=== PATIENT | female | born 1975 | race Caucasian/White ===

== ENCOUNTER 2020-11-06 17:33 | Emergency (ER) | payer OTHER ==
[~2020-11-06] VITALS: Ht 160 cm; Wt 89.5 kg
--- NOTE | 2020-11-06 18:10 | RAD ---
EXAM: XR ELBOW COMPLETE_LEFT 3+VIEWS, XR LT WRIST 3VIEWS. HISTORY: Fall from horse. COMPARISON: None. FINDINGS: There is mildly comminuted intra-articular fracture of the distal radius. The main fracture line is in the coronal plane, resulting in a 4 mm articular surface gap. Radiocarpal and intercarpal joint spaces and alignment are maintained. A nondisplaced fracture is suspected at the radial neck. Joint spaces and alignment at the elbow are maintained. There is no joint effusion. IMPRESSION: 1. Comminuted intra-articular fracture of the distal radius resulting in a 4 mm articular surface gap . 2. Suspect a nondisplaced fracture of the radial neck. Electronically signed by: Charli Stahl MD (11/06/2020 6:07 PM) [facility]
--- NOTE | 2020-11-06 18:13 | PHYS DOC ---
Past History Past Medical History: No Pertinent History Past Surgical History: Hysterectomy Alcohol Use: None General Adult EDM: Chief Complaint: WRIST PAIN HPI: HPI: 45-year-old female presents with left wrist pain. The patient was riding her horse when she fell off. She fell onto an outstretched hand. She immediately had severe wrist pain. She still rates the pain as moderate to severe. She denies any other injuries. She was not knocked unconscious. Review of Systems: Review of Systems: Constitutional: Denies fever or chills Eyes: Denies change in visual acuity HENT: Denies nasal congestion or sore throat Respiratory: Denies cough or shortness of breath Cardiovascular: Denies chest pain or edema GI: Denies abdominal pain, nausea, vomiting, bloody stools or diarrhea : Denies dysuria Musculoskeletal: Left wrist pain Integument: Denies rash Neurologic: Denies headache, focal weakness or sensory changes Endocrine: Denies polyuria or polydipsia Lymphatic: Denies swollen glands Psychiatric: Denies depression or anxiety Current Medications: Current Meds: Current Medications Medications (Trade) Dose Ordered Sig/Balwinder Start Time Stop Time Status Last Admin Dose Admin Morphine Sulfate (Morphine 4mg Syringe) 4 mg 1X ONCE 11/06/20 18:15 11/06/20 18:16 UNV Ondansetron HCl (Zofran) 4 mg 1X ONCE 11/06/20 18:15 11/06/20 18:16 UNV Allergies: Allergies: Allergies Coded Allergies Type Severity Reaction Last Updated Verified aspirin Allergy Intermediate 11/06/20 Yes Physical Exam: PE: Constitutional: Well developed, well nourished, no acute distress, non-toxic appearance. [] HENT: Normocephalic, atraumatic, bilateral external ears normal, oropharynx moist, no oral exudates, nose normal. [] Eyes: PERRLA, EOMI, conjunctiva normal, no discharge. [] Neck: Normal range of motion, no tenderness, supple, no stridor. [] Cardiovascular:Heart rate regular rhythm, no murmur [] Lungs & Thorax: Bilateral breath sounds clear to auscultation [] Abdomen: Bowel sounds normal, soft, no tenderness, no masses, no pulsatile masses. [] Skin: Warm, dry, no erythema, no rash. [] Back: No tenderness, no CVA tenderness. [] Extremities: Left wrist tender to palpation, swelling, likely deformity, range of motion deferred due to pain. [] Neurologic: Alert and oriented X 3, normal motor function, normal sensory function, no focal deficits noted. [] Psychologic: Affect normal, judgement normal, mood normal. [] Current Patient Data: Vital Signs: Vital Signs Date Time Temp Pulse Resp B/P (MAP) Pulse Ox O2 Delivery O2 Flow Rate FiO2 11/06/20 17:58 98.3 69 16 134/78 (96) 99 Room Air EKG: EKG: [] Radiology/Procedures: Radiology/Procedures: [] Impressions: EXAM: XR ELBOW COMPLETE_LEFT 3+VIEWS, XR LT WRIST 3VIEWS. HISTORY: Fall from horse. COMPARISON: None. FINDINGS: There is mildly comminuted intra-articular fracture of the distal radius. The main fracture line is in the coronal plane, resulting in a 4 mm articular surface gap. Radiocarpal and intercarpal joint spaces and alignment are maintained. A nondisplaced fracture is suspected at the radial neck. Joint spaces and alignment at the elbow are maintained. There is no joint effusion. IMPRESSION: 1. Comminuted intra-articular fracture of the distal radius resulting in a 4 mm articular surface gap. 2. Suspect a nondisplaced fracture of the radial neck. Electronically signed by: Charli Stahl MD (11/06/2020 6:07 PM) [facility] DICTATED AND SIGNED BY: DARRIAN STAHL MD DATE: 11/06/201804 CC: MALACHI BALDERRAMA DO; SENAIT MUNOZ MD; JAY JAY MEEKS [place] ~MTH0 0 Heart Score: C/O Chest Pain: N/A Risk Factors: Risk Factors: DM, Current or recent (<one month) smoker, HTN, HLP, family history of CAD, obesity. Risk Scores: Score 0 - 3: 2.5% MACE over next 6 weeks - Discharge Home Score 4 - 6: 20.3% MACE over next 6 weeks - Admit for Clinical Observation Score 7 - 10: 72.7% MACE over next 6 weeks - Early Invasive Strategies Course & Med Decision Making: Course & Med Decision Making Pertinent Labs and Imaging studies reviewed. (See chart for details) The patient does have a comminuted intra-articular fracture of the left wrist. I will discuss timing of management with orthopedic surgeon. I spoke with the orthopedic surgeon at [facility] and he has recommended splinting and follow-up outpatient for discussion of surgical repair. The patient is comfortable with this plan. Have given her 4 mg of morphine in the ER followed by a [place] 7.5/325. Her pain has been well controlled. We were able to splint the arm with a sugar tong type splint. She had good capillary refill and sensation post splint. I will discharge her with [place] 5/325 for her pain. She will follow-up with the orthopedist of her choice. She is stable for discharge at this time. [] Dragon Disclaimer: Dragon Disclaimer: This electronic medical record was generated, in whole or in part, using a voice recognition dictation system. Departure Departure: Impression: Primary Impression: Fracture of radius, left, closed Qualified Codes: S52.352A - Displaced comminuted fracture of shaft of radius, left arm, initial encounter for closed fracture Disposition: HOME / SELF CARE / HOMELESS Condition: STABLE Referrals: JAY JAY MEEKS (PCP) Patient Instructions: Radius Fracture with [facility] Additional Instructions: Please follow-up with an orthopedic surgeon of your choice as soon as possible. You should wear your splint until you see the orthopedic surgeon. Scripts Hydrocodone/Acetaminophen (Hydrocodone-Acetamin 5-325 mg) 1 Each Tablet 1 EACH PO Q4-6HRS PRN for PAIN, #10 TAB Prov: MALACHI BALDERRAMA DO 11/06/20 MALACHI BALDERRAMA DO Nov 06, 2020 18:13
[2020-11-06] MEDS ORDERED: ONDANSETRON PF 4 MG/2 ML VIAL. IVP ONE (18:15)
[2020-11-06] MEDS ORDERED: MORPHINE SULFATE 4 MG/ML DISP.SYRIN. IV ONE (18:15)
[2020-11-06 18:47] LABS: BASO # 0.1 x10^3/uL (0.0-0.2); BASO % 1 % (0-3); EOS # 0.2 x10^3/uL (0.0-0.7); EOS % 2 % (0-3); HEMATOCRIT 36.9 % (36.0-47.0); HEMOGLOBIN 12.2 g/dL (12.0-15.5); LYMPH # 2.9 x10^3/uL (1.0-4.8); LYMPH % 22 % (24-48); MEAN CORPUSCULAR HEMOGLOBIN 33 pg (25-35); MEAN CORPUSCULAR HGB CONC 33 g/dL (31-37); MEAN CORPUSCULAR VOLUME 99 fL (79-100); MONO # 0.7 x10^3/uL (0.0-1.1); MONO % 5 % (0-9); NEUT # 9.4 x10^3uL (1.8-7.7); NEUT % 71 % (31-73); PLATELET COUNT 300 x10^3/uL (140-400); RED BLOOD COUNT 3.71 x10^6/uL (3.50-5.40); RED CELL DISTRIBUTION WIDTH 15.2 % (11.5-14.5); WHITE BLOOD COUNT 13.3 x10^3/uL (4.0-11.0)
[2020-11-06 18:54] LABS: CALCIUM 9.1 mg/dL (8.5-10.1); CREATININE 0.9 mg/dL (0.6-1.0); POTASSIUM 3.8 mmol/L (3.5-5.1)
[2020-11-06 18:59] LABS: ALBUMIN 4.1 g/dL (3.4-5.0); ALBUMIN/GLOBULIN RATIO 1.2 (1.0-1.7); TOTAL BILIRUBIN 0.6 mg/dL (0.2-1.0); TOTAL PROTEIN 7.5 g/dL (6.4-8.2)
[2020-11-06] MEDS ORDERED: HYDROcodone/APAP 7.5/325MG 1 TAB TABLET PO ONE (19:15)
[2020-11-06] MEDS ORDERED: HYDROcodone/APAP 7.5/325MG 1 TAB TABLET ONE (19:21)
[2020-11-06] MEDS ORDERED: HYDR-2759 PO (20:19)
[2020-11-06 20:29] VITALS: BP 135/87
== END 2020-11-06 20:30 | disposition home or self-care (01) ==
LOC: ER 17:33
DX: S52.352A Displaced comminuted fracture of shaft of radius, left arm, initial encounter for closed fracture (principal); Z20.822 Contact with and (suspected) exposure to COVID-19; Z88.6 Allergy status to analgesic agent; W18.39XA Other fall on same level, initial encounter; Y93.89 Activity, other specified; Y92.89 Other specified places as the place of occurrence of the external cause; Y99.8 Other external cause status
CPT/HCPCS: 29125; 36415; 73080; 73110; 80053; 85025; 87426; 96374; 96375; 99284; C9803; J2270; J2405; U0003; U0005

== ENCOUNTER 2021-12-06 09:01 | Emergency (ER) | payer OTHER ==
[~2021-12-06] VITALS: Ht 160 cm; Wt 88.4 kg
[~2021-12-06 09:01] MED LIST: HYDR-2759 PO
[2021-12-06] MEDS ORDERED: ONDANSETRON PF 4 MG/2 ML VIAL. ONE (09:20)
--- NOTE | 2021-12-06 09:29 | PHYS DOC ---
Past History Past Medical History: No Pertinent History Additional Past Medical Histor: ADHD Past Surgical History: Hysterectomy Alcohol Use: Sober Additional Alcohol Information: 1 beer or glass of wine daily General Adult EDM: Chief Complaint: ABDOMINAL PAIN HPI: HPI: 46-year-old female presents with right lower quadrant abdominal pain. The patient woke up this morning with right lower abdominal pain that radiates up to her right flank. The pain is a cramping sensation of moderate intensity. She has had some intermittent right low back and flank pain for a couple weeks she has never had the pain in her anterior abdomen. She denies dysuria, increased urinary frequency, vaginal discharge. She has had an episode of diarrhea and vomiting this morning prior to arrival. No history of kidney stones. She drives a truck for work. Denies fever or chills. Review of Systems: Review of Systems: Constitutional: Denies fever or chills Eyes: Denies change in visual acuity HENT: Denies nasal congestion or sore throat Respiratory: Denies cough or shortness of breath Cardiovascular: Denies chest pain or edema GI: Right lower quadrant abdominal pain, nausea, vomiting, diarrhea : Denies dysuria Musculoskeletal: Denies back pain or joint pain Integument: Denies rash Neurologic: Denies headache, focal weakness or sensory changes Endocrine: Denies polyuria or polydipsia Lymphatic: Denies swollen glands Psychiatric: Denies depression or anxiety Current Medications: Current Meds: Current Medications Medications (Trade) Dose Ordered Sig/Balwinder Start Time Stop Time Status Last Admin Dose Admin Ondansetron HCl (Zofran) 4 mg STK-MED ONCE 12/06/21 09:20 12/06/21 09:21 DC Sodium Chloride 1,000 ml @ 1,000 mls/hr 1X ONCE 12/06/21 09:30 12/06/21 10:29 Allergies: Allergies: Allergies Coded Allergies Type Severity Reaction Last Updated Verified aspirin Allergy Intermediate 12/06/21 Yes Physical Exam: PE: Constitutional: Well developed, well nourished, no acute distress, non-toxic appearance. [] HENT: Normocephalic, atraumatic, bilateral external ears normal, oropharynx moist, no oral exudates, nose normal. [] Eyes: PERRLA, EOMI, conjunctiva normal, no discharge. [] Neck: Normal range of motion, no tenderness, supple, no stridor. [] Cardiovascular: Heart rate regular rhythm, no murmur [] Lungs & Thorax: Bilateral breath sounds clear to auscultation [] Abdomen: Bowel sounds normal, soft, mild RLQ tenderness without rebound or guarding, no masses, no pulsatile masses. [] Skin: Warm, dry, no erythema, no rash. [] Back: No tenderness, right CVA tenderness. [] Extremities: No tenderness, no cyanosis, no clubbing, ROM intact, no edema. [] Neurologic: Alert and oriented X 3, normal motor function, normal sensory function, no focal deficits noted. [] Psychologic: Affect normal, judgement normal, mood normal. [] Current Patient Data: Vital Signs: Vital Signs Date Time Temp Pulse Resp B/P (MAP) Pulse Ox O2 Delivery O2 Flow Rate FiO2 12/06/21 09:07 98.3 66 18 137/79 (98) 99 Room Air EKG: EKG: [] Radiology/Procedures: Radiology/Procedures: [] Impressions: CT ABDOMEN+PELVIS WO History: Reason: RLQ pain / Spl. Instructions: / History: Technique: Noncontrast examination of the abdomen and pelvis. Coronal and s agittal reconstructions were performed. Exposure: One or more of the following individualized dose reduction techniques were utilized for this examination: 1. Automated exposure control 2. Adjustment of the mA and/or kV according to patient size 3. Use of iterative reconstruction technique. Comparison: None Findings: Lower chest: No consolidation or pleural effusion. Abdomen and pelvis: The liver, spleen, adrenal glands, pancreas and gallbladder. No biliary ductal dilatation. No hydronephrosis. No renal calculus. Thick- walled urinary bladder. Urinary bladder is nondistended. Normal appendix. No evidence of bowel obstruction. No pathologic lymphadenopathy. No ascites. Small fat-containing umbilical hernia. Bones: Mild lumbar spondylosis most prominent L4-5 and L5-S1. Impression: 1. Urinary bladder wall thickening, may relate to nondistention. Correlate for cystitis. 2. Otherwise, no acute abdominal or pelvic pathology. Electronically signed by: Hermelindo Vides DO (12/06/2021 10:17 AM) [id number] DICTATED AND SIGNED BY: HERMELINDO VIDES DO DATE: 12/06/21 1005 CC: MALACHI BALDERRAMA DO; JAY JAY MEEKS ~ Heart Score: C/O Chest Pain: N/A Risk Factors: Risk Factors: DM, Current or recent (<one month) smoker, HTN, HLP, family history of CAD, obesity. Risk Scores: Score 0 - 3: 2.5% MACE over next 6 weeks - Discharge Home Score 4 - 6: 20.3% MACE over next 6 weeks - Admit for Clinical Observation Score 7 - 10: 72.7% MACE over next 6 weeks - Early Invasive Strategies Course & Med Decision Making: Course & Med Decision Making Pertinent Labs and Imaging studies reviewed. (See chart for details) The patient's labs are unremarkable. Her CT is negative for acute findings other than some bladder thickening. She was given a liter normal saline and 4 m g of Zofran. She is feeling a bit better. Urinalysis is pending. The urinalysis is negative for infection. This appears to be a viral gastroenteritis. I have advised supportive care. I will discharge her with Zofran. She is stable for discharge at this time. [] Dragon Disclaimer: Didier Disclaimer: This electronic medical record was generated, in whole or in part, using a voice recognition dictation system. Departure Departure: Impression: Primary Impression: Viral gastroenteritis Disposition: HOME / SELF CARE / HOMELESS Condition: STABLE Referrals: JAY JAY MEEKS (PCP) Patient Instructions: Viral Gastroenteritis, [id number] Scripts Ondansetron (ONDANSETRON ODT) 4 Mg Tab.rapdis 1 TAB PO PRN Q6-8HRS PRN for VOMITING, #16 TAB Prov: MALACHI BALDERRAMA DO 12/06/21 MALACHI BALDERRAMA DO December 06, 2021 09:29
[2021-12-06] MEDS ORDERED: ONDANSETRON PF 4 MG/2 ML VIAL. IVP ONE (09:30)
[2021-12-06] MEDS ORDERED: IV NORMAL SALINE 1,000ML 1,000 ML IV ONE (09:30)
[2021-12-06 10:00] LABS: BASO # 0.1 x10^3/uL (0.0-0.2); BASO % 1 % (0-3); EOS # 0.1 x10^3/uL (0.0-0.7); EOS % 1 % (0-3); HEMATOCRIT 35.7 % (36.0-47.0); LYMPH # 1.5 x10^3/uL (1.0-4.8); LYMPH % 14 % (24-48); MEAN CORPUSCULAR HEMOGLOBIN 35 pg (25-35); MEAN CORPUSCULAR HGB CONC 34 g/dL (31-37); MEAN CORPUSCULAR VOLUME 102 fL (79-100); MONO # 0.5 x10^3/uL (0.0-1.1); MONO % 5 % (0-9); NEUT # 8.6 x10^3uL (1.8-7.7); NEUT % 80 % (31-73); PLATELET COUNT 259 x10^3/uL (140-400); RED BLOOD COUNT 3.49 x10^6/uL (3.50-5.40); RED CELL DISTRIBUTION WIDTH 15.4 % (11.5-14.5); WHITE BLOOD COUNT 10.7 x10^3/uL (4.0-11.0)
--- NOTE | 2021-12-06 10:19 | RAD ---
CT ABDOMEN+PELVIS WO History: Reason: RLQ pain / Spl. Instructions: / History: Technique: Noncontrast examination of the abdomen and pelvis. Coronal and sagittal reconstructions we re performed. Exposure: One or more of the following individualized dose reduction techniques were utilized for thi s examination: 1. Automated exposure control 2. Adjustment of the mA and/or kV according to patient size 3. Use of iterative reconstruction technique. Comparison: None Findings: Lower chest: No consolidation or pleural effusion. Abdomen and pelvis: The liver, spleen, adrenal glands, pancreas and gallbladder. No biliary ductal di latation. No hydronephrosis. No renal calculus. Thick-walled urinary bladder. Urinary bladder is nond istended. Normal appendix. No evidence of bowel obstruction. No pathologic lymphadenopathy. No ascites. Small f at-containing umbilical hernia. Bones: Mild lumbar spondylosis most prominent L4-5 and L5-S1. Impression: 1. Urinary bladder wall thickening, may relate to nondistention. Correlate for cystitis. 2. Otherwise, no acute abdominal or pelvic pathology. Electronically signed by: Hermelindo Posada DO (12/06/2021 10:17 AM) [id number]
[2021-12-06 10:31] LABS: CALCIUM 8.8 mg/dL (8.5-10.1); CREATININE 0.7 mg/dL (0.6-1.0); GFR 90.5; POTASSIUM 4.7 mmol/L (3.5-5.1)
[2021-12-06 10:38] LABS: ALBUMIN 3.6 g/dL (3.4-5.0); ALBUMIN/GLOBULIN RATIO 1.2 (1.0-1.7); TOTAL BILIRUBIN 0.7 mg/dL (0.2-1.0); TOTAL PROTEIN 6.6 g/dL (6.4-8.2)
[2021-12-06 11:08] LABS: BACTERIA,URINE 0 /HPF (0-FEW); CLARITY,URINE CLEAR; COLOR,URINE YELLOW; GLUCOSE,URINE NEG (NEG); NITRITE,URINE NEG (NEG); RBC,URINE 0 /HPF (0-2); SQUAMOUS EPITHELIAL CELL,UR MANY /LPF; UROBILINOGEN,URINE 0.2 mg/dL (0.2 mg/dL); WBC,URINE OCC /HPF (0-4)
[2021-12-06] MEDS ORDERED: ONDA4TAB12 PO (11:21)
[2021-12-06 11:34] VITALS: BP 109/63
== END 2021-12-06 11:38 | disposition home or self-care (01) ==
LOC: ER 09:01
DX: A08.4 Viral intestinal infection, unspecified (principal); Z90.710 Acquired absence of both cervix and uterus; Z88.6 Allergy status to analgesic agent
CPT/HCPCS: 36415; 74176; 80053; 81001; 85025; 96361; 96374; 99284; J2405; J7030